=== PATIENT | female | born 1975 | race Caucasian/White ===

== ENCOUNTER → 2017-05-30 | Outpatient (CLI) | payer BC ==
[2017-05-30 17:22] LABS: Basophils # (A) 0.1 k/uL (0-0.2); Basophils % (A) 0 %; CH 29.6; CHCM 33.8; Eosinophils # (A) 0.1 k/uL (0-0.7); Eosinophils % (A) 1 %; HCT 42.1 % (34.0-46.0); HDW 2.38; HGB 13.5 gm/dL (11.4-16.0); Luc # (Auto) 0.17; Luc % (Auto) 2; Lymphocytes # (A) 2.4 k/uL (1.0-4.8); Lymphocytes % (A) 22 %; MCH 28.3 pg (25.0-35.0); MCHC 32.2 g/dL (31.0-37.0); Mean Platelet Volume 7.3; Monocytes # (A) 0.6 k/uL (0-1.0); Monocytes % (A) 6 %; Neutrophils # (A) 7.4 k/uL (1.3-7.7); Neutrophils % (A) 69 %; RBC 4.78 m/uL (3.80-5.40); RDW 14.2 % (11.5-15.5); WBC 10.7 k/uL (3.8-10.6); WBC (Perox) 10.91
== END | disposition home or self-care (01) ==
LOC: LABPAT 16:42
PROVIDERS: ATTEND Obstetrics & Gynecology
DX: Z01.812 Encounter for preprocedural laboratory examination (principal); N92.1 Excessive and frequent menstruation with irregular cycle
CPT/HCPCS: 85025

== ENCOUNTER 2017-06-11 07:14 | Day surgery (SDC) | payer BC, OTHER ==
[2017-06-06 17:25] VITALS: BMI 34.1
--- NOTE | 2017-06-10 17:07 | HP ---
HISTORY AND PHYSICAL DATE OF SURGERY: 06/11/2017 HISTORY OF PRESENT ILLNESS: Liz is a 41-year-old 4, para 3-0-1-3, who presented to the hospital with a longstanding history of heavy cycles lasting 7 to 9 days. More recently though, she reports increased irregularity, heaviness, with one that lasted as long as 30 days. She does have a tubal ligation in place and has been bleeding through protection on occasion as well. She was interested in a more permanent option for treatment. She did try an oral contraceptive pill after an ER visit last year, but this failed to control the bleeding, and she is not in need of contraception. She also reports some moderate dysmenorrhea without dyspareunia. PAST MEDICAL HISTORY: Past medical history is significant for hypertension and thyroid disease. PAST SURGICAL HISTORY: Past surgical history is significant for tubal ligation as well as upper and lower endoscopy in 2016. There were no apparent anesthetic concerns. OBSTETRICAL HISTORY: 4, para 3-0-1-3, with 3 term vaginal deliveries and 1 early elective interruption of . Method of contraception is tubal ligation. GYNECOLOGIC HISTORY: Unremarkable, with no history of any infections to include STDs. FAMILY HISTORY: Noncontributory. SOCIAL HISTORY: The patient is and a nonsmoker. She drinks occasional alcohol. No other social concerns. CURRENT MEDICATIONS: Current medications include: 1. Albuterol inhaler as needed. 2. B12 sublingual lozenges. 3. Multivitamin daily. ALLERGIES: 1. CHLORINE OF SOME KIND caused flu-like symptoms. 2. LATEX is a local allergy. REVIEW OF SYSTEMS: Confined to history of present illness. PHYSICAL EXAMINATION: Vital signs are stable. The patient is afebrile. In general, this is a well- developed, well-nourished white female in no acute distress. Her heart has a regular rhythm and rate without murmur. Her lungs are clear to auscultation bilaterally in all mason. Her abdomen is not distended, has normoactive bowel sounds, is soft, nontender, and without any palpable masses, hepatosplenomegaly or hernias. Her extremities are without any cyanosis, clubbing or edema and are non-tender to palpation bilaterally. Pelvic examination demonstrates normal external genitalia and BUS with normal vaginal mucosa and cervix. There is no cervical motion tenderness. Uterus is approximately 5-6 weeks in size, mid plane, mobile, non-tender and normal in shape. Endometrial biopsy was performed in one pass with adequate tissue returned and a subsequent benign finding on endometrial biopsy. ASSESSMENT AND PLAN: Menometrorrhagia. After we discussed multiple different treatment options and the patient declined hormonal intervention in favor of a surgical approach, we discussed diagnostic hysteroscopy with NovaSure endometrial ablation. Risks and complications of the procedure were discussed at length, including the risk for bleeding, bleeding requiring transfusion, infection, and injury to local structures, to specifically include uterine perforation, Asherman syndrome and subsequent hematometra. She has understood all these and has agreed to proceed. We are scheduled for the morning of June 11, 2017. MMODL / IJN: [id number] /
[~2017-06-11 07:14] MED LIST: DEXAMETHASONE SOD PHOSPHATE 10 MG/ML 1 ML VIAL IV ONE; LACTATED RINGERS 1,000 ML IV SCH; MIDAZOLAM 2 MG/2 ML VIAL IV PRN; ONDANSETRON 4 MG/2 ML VIAL IVP ONE; Pre Op ABX Message 1 EACH MISC MISCELLANE ONE; SCOPOLAMINE 1.5MG/72HR PATCH TRANSDERM ONE
[2017-06-11 08:11] VITALS: TEMP 97.8
[2017-06-11] MEDS ORDERED: LIDOCAINE 1% 20 ML VIAL (10MG/ML) FOR IV START IV ONE (08:12)
[2017-06-11] MEDS ORDERED: KETOROLAC 30 MG/ML 1 ML VIAL IVP PRN (08:24)
[2017-06-11] MEDS ORDERED: METOCLOPRAMIDE 5 MG/ML 2 ML VIAL IVP PRN (08:24)
[2017-06-11] MEDS ORDERED: ONDANSETRON 4 MG/2 ML VIAL IVP PRN (08:24)
[2017-06-11] MEDS ORDERED: diphenhydrAMINE 50 MG/ML 1 ML VIAL IVP PRN (08:24)
[2017-06-11] MEDS ORDERED: SIMETHICONE 80 MG CHEWABLE PO PRN (08:24)
[2017-06-11] MEDS ORDERED: IBUPROFEN 600 MG TAB PO PRN (08:24)
[2017-06-11] MEDS ORDERED: Acetaminophen-Codeine 300-30mg TAB PO PRN ×2 (08:24)
[2017-06-11] MEDS ORDERED: LACTATED RINGERS 1,000 ML IV SCH (08:30)
[2017-06-11] MEDS ORDERED: fentaNYL (PF) 50 MCG/ML 2 ML AMP ONE (08:35)
[2017-06-11] MEDS ORDERED: LIDOCAINE 1% INJ 10MG/ML (20 ML MDV) ONE (08:35)
[2017-06-11] MEDS ORDERED: KETOROLAC 30 MG/ML 1 ML VIAL ONE (08:35)
[2017-06-11] MEDS ORDERED: MIDAZOLAM 2 MG/2 ML VIAL ONE (08:35)
[2017-06-11] MEDS ORDERED: PROPOFOL 10 MG/ML 20 ML VIAL IV ONE (08:35)
--- NOTE | 2017-06-11 09:06 | P.OP ---
Date of Procedure: 06/11/17 Preoperative Diagnosis: #1. Menometrorrhagia Postoperative Diagnosis: Same Procedure(s) Performed: #1. Diagnostic hysteroscopy #2. NovaSure endometrial ablation Anesthesia: other (Gen. by facemask) Surgeon: Rajendra Perez Estimated Blood Loss (ml): 5 IV fluids (ml): 300 Urine output (ml): 250 Pathology: none sent Condition: stable Disposition: PACU Operative Findings: Preoperative pelvic examination demonstrated a roughly 6 week slightly anteverted mobile normal shaped uterus with normal adnexa bilaterally. Intraoperatively, the uterus sounded to 10 cm while the cervix was approximate 4 cm in length. Using the hysteroscope, the bilateral tubal ostia were seen and there was no apparent pathology throughout the entire uterus. The settings for the NovaSure tool where a length of 6.0 cm, a width of 4.5 cm and a total power of 149 W. This led to a total run time of 73 seconds after which time the base unit read "procedure complete." The postprocedural hysteroscopic the view of the uterus appeared to demonstrated an excellent result. The patient is a borderline candidate for vaginal hysterectomy should it become necessary in the future. Description of Procedure: The patient was prepped and draped in usual fashion after general anesthesia was administered by the anesthesiologist. A weighted speculum was placed and the bladder drained of approximately 250 mL of clear scarlett urine. The anterior lip of the cervix was grasped with single-tooth tenaculum and uterus sounded to 10 cm as noted above with a roughly 47 m cervical measurement. Serial dilation was carried out to admit the diagnostic hysteroscope with the findings as noted above. Once adequate hysteroscopy had been carried out, the scope was set aside and dilation carried out to admit the NovaSure tool which was placed into the in vitro cavity and seated well. The settings for the tool were as noted above, a length of 6.0 cm, a width of 4.5 cm and a total power 149 W. The cavity check was attempted and passed without difficulty and the tool was enabled. The run was started and, after a total 73 seconds, the tool disengaged at which time the base unit read "procedure complete." The 2 was closed, removed and discarded. The diagnostic scope was replaced within the in vitro cavity and the result appeared to be excellent. All instrumentation was removed. There was a small point of bleeding at one of the tenaculum sites made hemostatic with pressure. Estimated blood loss for the entire case was less than 5 mL. There were no complications. All sponge, instrument, and needle counts were correct. The patient tolerated the procedure well and proceeded to the recovery room in stable condition.
[2017-06-11 09:13] VITALS: RESP 16
[2017-06-11] MEDS: HYDROmorphone 0.5 MG/0.5 ML SYRINGE IVP PRN ×2 (09:27→09:33)
[2017-06-11] MEDS ORDERED: LACTATED RINGERS 1,000 ML IV ONE (09:46)
[2017-06-11 10:31] VITALS: BP 125/88; PULSE 72
== END 2017-06-11 11:10 | disposition home or self-care (01) ==
LOC: OR 07:14
PROVIDERS: ATTEND Obstetrics & Gynecology
DX: N92.1 Excessive and frequent menstruation with irregular cycle (principal); I10 Essential (primary) hypertension; E07.9 Disorder of thyroid, unspecified; Z91.040 Latex allergy status; Z91.09 Other allergy status, other than to drugs and biological substances; J45.909 Unspecified asthma, uncomplicated; Z87.442 Personal history of urinary calculi; Z79.83 Long term (current) use of bisphosphonates; Z79.899 Other long term (current) drug therapy
CPT/HCPCS: 81025; 58563; J2250; J1100; J2405; J2001; J3010; J1885; J2704; J1170

== ENCOUNTER 2017-10-22 06:43 | Emergency (ER) | payer BC ==
[2017-10-22 06:49] VITALS: BP 154/86; PULSE 77; RESP 18; TEMP 99.1
[2017-10-22] MEDS ORDERED: diphenhydrAMINE 50 MG/ML 1 ML VIAL IM STA (07:48)
[2017-10-22] MEDS ORDERED: methylPREDNISolone SOD SUCCI 125 MG/2 ML VIAL IM ONE (07:48)
--- NOTE | 2017-10-22 07:54 | ED ---
General Adult HPI - General Chief complaint: Eye Problems Stated complaint: eye swelling Time Seen by Provider: 10/22/17 07:38 Source: patient, family, RN notes reviewed Mode of arrival: ambulatory Limitations: no limitations - History of Present Illness Initial comments: Patient is a pleasant 42-year-old female presenting to the emergency department with upper eyelid swelling. Onset was around 4 AM. Symptoms have worsened since that time. Patient has mild discomfort, no pain. No change in vision. No lower eyelid or eye involvement. No swelling of the lips or tongue or throat. No dyspnea. Patient did have similar symptoms once previously. Patient also has had a chronic rash mostly on her hands. Patient did see a card decorator for her rash and told her it was likely eczema. Patient has been worked up for rheumatological disease. No fevers. Patient denies any eye makeup. - Related Data Home Medications Medication Instructions Recorded Confirmed Albuterol Inhaler [Ventolin Hfa 1 - 2 puff INHALATION RT-Q6H PRN 06/06/17 Inhaler] Erythromycin Ophth Oint [Romycin 1 applic BOTH EYES QID PRN 10/22/17 10/22/17 Ophth Oint] Levocetirizine Dihydrochloride 5 mg PO DAILY PRN 10/22/17 10/22/17 [Xyzal] Losartan-Hctz 50-12.5 mg [Hyzaar 1 tab PO DAILY 10/22/17 10/22/17 50-12.5] buPROPion HCL [Wellbutrin SR] 150 mg PO BID 10/22/17 10/22/17 Previous Rx's Medication Instructions Recorded methylPREDNISolone Dose Pack 24 mg PO DAILY #1 tab 10/22/17 [Medrol Dose Pack] Allergies Allergy/AdvReac Type Severity Reaction Status Date / Time Latex, Natural Rubber Allergy Rash/Hives Verified 10/22/17 07:31 chlorine Allergy rash, flu Uncoded 10/22/17 06:49 symptoms Review of Systems ROS Statement: Those systems with pertinent positive or pertinent negative responses have been documented in the HPI. ROS Other: All systems not noted in ROS Statement are negative. Constitutional: Denies: fever Eyes: Denies: eye pain, eye discharge, vision change ENT: Denies: ear pain Respiratory: Denies: cough Cardiovascular: Denies: chest pain Endocrine: Denies: fatigue Gastrointestinal: Denies: abdominal pain Genitourinary: Denies: dysuria Musculoskeletal: Denies: back pain Skin: Denies: rash Neurological: Denies: headache Past Medical History Past Medical History: Hypertension Additional Past Medical History / Comment(s): depression History of Any Multi-Drug Resistant Organisms: None Reported Additional Past Surgical History / Comment(s): endometrial ablasion Past Psychological History: Depression Smoking Status: Never smoker Past Alcohol Use History: None Reported Past Drug Use History: None Reported General Exam Limitations: no limitations General appearance: alert, in no apparent distress Head exam: Present: atraumatic Eye exam: Present: PERRL, EOMI, other (Moderate bilateral upper eyelid swelling with mild pinkish discoloration) ENT exam: Present: normal oropharynx Neck exam: Present: normal inspection Respiratory exam: Present: normal lung sounds bilaterally Cardiovascular Exam: Present: regular rate, normal rhythm GI/Abdominal exam: Present: soft. Absent: tenderness Extremities exam: Present: normal inspection Neurological exam: Present: alert Psychiatric exam: Present: normal affect, normal mood Skin exam: Present: normal color Course Vital Signs 10/22/17 06:45 Temperature 99.1 F Pulse Rate 77 Respiratory 18 Rate Blood Pressure 154/86 O2 Sat by Pulse 98 Oximetry Medical Decision Making - Medical Decision Making Patient is advised that there is a possibility of the losartan and Hyzaar causing the symptoms and to follow up with her doctor for this. Disposition Clinical Impression: Angioedema Disposition: HOME SELF-CARE Condition: Stable Instructions: Angioedema (ED) Additional Instructions: Do not use any eye makeup. Please follow-up with primary care physician in the next day or 2 for recheck. Hold Hyzaar until follow-up with primary care physician. There is a slight chance this medication could be related. Continue antihistamine. Return for difficulty in breathing, swelling of the throat or tongue or lips, visual change, fevers, worsening symptoms or other concerns. Prescriptions: methylPREDNISolone Dose Pack [Medrol Dose Pack] 24 mg PO DAILY #1 tab Referrals: Pasha Tsai MD [Primary Care Provider] - 1-2 days Time of Disposition: 07:54
== END 2017-10-22 08:09 | disposition home or self-care (01) ==
LOC: EC 06:43
DX: T78.3XXA Angioneurotic edema, initial encounter (principal); I10 Essential (primary) hypertension; F32.9 Major depressive disorder, single episode, unspecified; Z79.899 Other long term (current) drug therapy; Z91.040 Latex allergy status; Z91.048 Other nonmedicinal substance allergy status
CPT/HCPCS: 99283; 96372 ×2; J1200; J2930

== ENCOUNTER → 2017-12-02 | Outpatient (CLI) | payer BC ==
--- NOTE | 2017-12-02 09:10 | MM ---
Reason for exam: clinical finding. History: Took hormonal contraceptives for 5 years beginning at age 21. Physical Findings: Nurse Summary: 0.5cm nodule in the left breast at the nipple (nurse ambrose). MG 3D Diag Mammo W/Cad KALEB Bilateral CC and MLO view(s) were taken. There are scattered fibroglandular densities. There is a 5mm mass in the right upper outer quadrant at posterior depth. On left palpable abnormality appears to relate to a vascularity. Precautionary ultrasound will be performed. These results were verbally communicated with the patient and result sheet given to the patient on 12/02/17. ASSESSMENT: Incomplete: need additional imaging evaluation, BI-RAD 0 RECOMMENDATION: Ultrasound of both breasts. (right upper outer quadrant and left at palpable)
--- NOTE | 2017-12-02 09:14 | USB ---
Reason for exam: additional evaluation requested from abnormal screening. History: Took hormonal contraceptives for 5 years beginning at age 21. US Breast Limited BILAT Right breast ultrasound demonstrates a 0.4 x 0.2 x 0.2cm node at 10 o'clock, benign, corresponds to the mammographic finding. Left breast ultrasound is negative. No sonographic correlation to the patient's palpable abnormality. These results were verbally communicated with the patient and result sheet given to the patient on 12/02/17. ASSESSMENT: Benign, BI-RAD 2 RECOMMENDATION: Routine screening mammogram of both breasts in 1 year. Manage on a clinical basis, possibly vasculature.
== END | disposition home or self-care (01) ==
LOC: RADMAMWWP 07:06
PROVIDERS: ATTEND Obstetrics & Gynecology
DX: N63.0 Unspecified lump in unspecified breast (principal)
CPT/HCPCS: 77066; 76642; G0279

== ENCOUNTER → 2021-07-17 | Outpatient (CLI) | payer BC, OTHER ==
--- NOTE | 2021-07-17 09:35 | US ---
EXAMINATION TYPE: US abdomen complete DATE OF EXAM: 07/17/2021 COMPARISON: NONE CLINICAL HISTORY: R10.84 Generalized abdominal pain. lower abd pain with rectal bleeding EXAM MEASUREMENTS: Liver Length: 16.8 cm Gallbladder Wall: 0.3 cm CBD: 0.5 cm Spleen: 9.4 cm Right Kidney: 11.5 x 4.6 x 4.5 cm Left Kidney: 12.7 x 4.6 x 6.0 cm Pancreas: wnl Liver: difficult to penetrate Gallbladder: wnl Evidence for sonographic Leung's sign: no CBD: wnl Spleen: wnl Right Kidney: wnl Left Kidney: wnl Upper IVC: wnl Abd Aorta: wnl The liver shows no mass, echotexture is coarse. The intrahepatic portion of the IVC and proximal abd ominal aorta are within normal limits. There is no evidence of cholelithiasis. Common bile duct is unremarkable. The visualized portions of the pancreas are homogenous. The spleen is unremarkable. Kidneys are symmetric and free of hydronephrosis, cortical measured differentiation is maintained. N o renal lesions are seen. IMPRESSION: Correlate for possible hepatic steatosis, hepatocellular disease, liver may be enlarged, measurement may under represent true size due to technique
== END | disposition home or self-care (01) ==
LOC: RADUSWWP 07:18
PROVIDERS: ATTEND Internal Medicine
DX: K76.89 Other specified diseases of liver (principal)
CPT/HCPCS: 76700

== ENCOUNTER → 2022-08-22 | Outpatient (CLI) | payer BC, OTHER ==
--- NOTE | 2022-08-23 18:57 | MM ---
Reason for Exam: Screening (asymptomatic). Last mammogram was performed 4 year(s) and 9 month(s) ago. Patient History: Menarche at age 11. First Full-Term at age 23. Hormonal Contraceptives for 5 years from age 21 until age 26. Last menstrual period: 06/11/2017 Risk Values: Devorah 5 year model risk: 0.8%. NCI Lifetime model risk: 9.3%. Prior Study Comparison: 12/02/2017 Bilateral Diagnostic Mammogram, [facility]. Tissue Density: There are scattered fibroglandular densities. Findings: Analyzed By CAD. Unchanged small intramammary lymph node lateral right breast. There is no suspicious group of microcalcifications or new suspicious mass in either breast. Overall Assessment: Negative, BI-RAD 1 Management: Screening Mammogram of both breasts in 1 year. 1. Patient should continue monthly self breast exams. 2. A clinical breast exam by your physician is recommended on an annual basis. 3. This exam should not preclude additional follow-up of suspicious palpable abnormalities. Electronically signed and approved by: Claudia Beavers M.D. Radiologist
== END | disposition home or self-care (01) ==
LOC: RADMAMWWP 16:38
PROVIDERS: ATTEND Obstetrics & Gynecology
DX: Z12.31 Encounter for screening mammogram for malignant neoplasm of breast (principal)
CPT/HCPCS: 77063; 77067

== ENCOUNTER → 2024-12-30 | Outpatient (CLI) | payer BC ==
[2024-12-30 16:38] VITALS: BP 104/72; PULSE 63; RESP 16; TEMP 98.2
--- NOTE | 2024-12-30 17:19 | P.SLEEP ---
History of Present Illness DATE: 12/30/2024 CONSULTATION/NEW PATIENT EVALUATION HISTORY OF PRESENT ILLNESS/SLEEP-WAKE EVALUATION: 49-year-old lady had been e valuated in the sleep center for possible obstructive sleep apnea hypopnea syndrome. SLEEP SCHEDULE: Usually sleep schedule from 1011 PM to 5:30 AM on weekdays and 121 AM until 7 AM on weekend. FALLING ASLEEP: Sometimes patient has difficulties with falling asleep, has TV set in bedroom. DURING SLEEP: Patient sleeps in different positions with loud snoring, episodes of gasping for air, choking, grinding teeth, palpitation, heartburn. Positive history of restless leg symptoms patient wakes up from sleep several times with up to 3 episodes of using restroom. Positive history of night terrors. No history of hypnogogical hallucinations, sleep paralysis, or cataplexy. DURING THE DAY/WAKE STATE: In the morning patient wake up tired. Hecker sleepiness scale is 8. Occasionally patient may take nap around 2 PM. Positive history of vivid dreams during naps. PAST MEDICAL HISTORY: Hypertension, diabetes mellitus, asthma, hyperlipidemia, acid reflux, esophageal metaplasia. PAST SURGICAL HISTORY: Cholecystectomy, tubal ligation, endometrial ablation. MEDICATIONS: Please see below. SOCIAL HISTORY: Please see below. FAMILY HISTORY: Please see below. REVIEW OF SYSTEMS: Snoring, multiple awakenings from sleep. No fevers. No double vision. No recent chest pain. No shortness of breath. No abdominal pain. No bleeding episodes. No blood in urine. No seizure episodes. PHYSICAL EXAMINATION: GENERAL: A pleasant patient without any distress. VITAL SIGNS: Please see below, weight 218.0 pounds, BMI 36.8. HEENT: PERRLA, EOMI. Evaluation of oropharynx showed tongue protrudes midline, low position of soft palate Mallampati 4, retrognathia 2 mm. NECK: Supple. No JVD. Thyroid is not palpable. 17 inches in circumference. LUNGS: Clear to percussion and to auscultation. Good air exchange. No wheezing or rhonchi. HEART: S1, S2 regular. No murmurs, gallops or rubs. ABDOMEN: Soft and nontender. Bowel sounds are present. No organomegaly appreciated. EXTREMITIES: No clubbing or cyanosis. BARBER: Awake, alert, and oriented x3. Cranial nerves 2 to 7 intact. There is no fasciculation or atrophy noted. No focal deficits observed. ASSESSMENT: 1. Loud snoring, multiple awakenings from sleep with choking and gasping for air, position of soft palate Mallampati 4, retrognathia 2 mm, wide neck 17 inches in circumference. Obstructive sleep apnea hypopnea syndrome. 2. Obesity, BMI 36.8. 3. Hypertension. 4. Diabetes mellitus. 5 asthma. 6 . Hyperlipidemia. 7. Acid reflux. 8. Esophageal metaplasia. 9 . Status post endometrial ablation. 10. Status post cholecystectomy. 11. Status post tubal ligation. PLAN: 1. Polysomnography for evaluation of patient's breathing during sleep. 2. Following plan after reading sleep study. 3. Preferable position during sleep on the side. 4. No driving if patient feels any sleepiness. Patient is aware of civil and criminal liability for unsafe driving. 5. Sleep hygiene with regular sleep time for at least 7.5-8 hours. 6. Watching and losing weight. Thank you very much for referring this patient for consultation. Sincerely, Yaya Romo MD, PhD, FAASM. Diplomat of [place] [employer], Sleep Medicine Board by [place] [employer] [place] [employer] [facility] [place] cc: Aguilar Dominguez MD, Markus Erwin DO Past Medical History Past Medical History: Diabetes Mellitus, Hyperlipidemia, Hypertension Additional Past Medical History / Comment(s): depression, METAPLASIA OF THE ESOPHAGUS, SEVERE GERD,KIDNEY STONES, FATTY LIVER, EXTERNAL AND INTERNAL HEMRHOIDS AND POLYPS History of Any Multi-Drug Resistant Organisms: None Reported Past Surgical History: Cholecystectomy, Tubal Ligation Additional Past Surgical History / Comment(s): endometrial ablasion , endoscopy and colonoscopy (EGD) Past Psychological History: Anxiety, Depression Smoking Status: Never smoker Past Alcohol Use History: None Reported Past Drug Use History: None Reported - Past Family History Father Family Medical History: CVA/TIA Additional Family Medical History / Comment(s): positive for TB Mother Family Medical History: Hyperlipidemia, Hypertension Additional Family Medical History / Comment(s): cataracts, ulcers, fatty liver Medications and Allergies Home Medications Medication Instructions Recorded Confirmed Type Albuterol Inhaler [Ventolin Hfa 1 - 2 puff INHALATION RT-Q6H PRN 06/06/17 10/22/17 History Inhaler] Erythromycin Ophth Oint [Romycin 1 applic BOTH EYES QID PRN 10/22/17 10/22/17 History Ophth Oint] Levocetirizine Dihydrochloride 5 mg PO DAILY PRN 10/22/17 10/22/17 History [Xyzal] Losartan-Hctz 50-12.5 mg [Hyzaar 1 tab PO DAILY 10/22/17 10/22/17 History 50-12.5] buPROPion HCL [Wellbutrin SR] 150 mg PO BID 10/22/17 10/22/17 History methylPREDNISolone Dose Pack 24 mg PO DAILY #1 tab 10/22/17 Rx [Medrol Dose Pack] Allergies Allergy/AdvReac Type Severity Reaction Status Date / Time Latex, Natural Rubber Allergy Rash/Hives Verified 10/22/17 07:31 chlorine Allergy rash, flu Uncoded 10/22/17 06:49 symptoms Physical Exam Vitals: Vital Signs Temp Pulse Resp BP Pulse Ox 12/30/24 16:36 98.2 F 63 16 104/72 95 Intake and Output 12/30/24 12/30/24 12/30/24 06:59 14:59 22:59 Other: Weight 98.883 kg Sleep Note - Sleep Data ESS Total: 8 - Sleep Note Sleep Note: Temperature: 98.2 F Pulse Rate: 63 Respiratory Rate: 16 Blood Pressure: 104/72 SpO2: 95 Height: 5 ft 4.5 in Weight: 98.883 kg BMI: Neck Circumference: 17
== END ==
LOC: 3 N SLEEP 15:56
PROVIDERS: ATTEND Internal Medicine
DX: G47.33 Obstructive sleep apnea (adult) (pediatric) (principal); E66.9 Obesity, unspecified; I10 Essential (primary) hypertension; E11.9 Type 2 diabetes mellitus without complications; J45.909 Unspecified asthma, uncomplicated; E78.5 Hyperlipidemia, unspecified; K21.9 Gastro-esophageal reflux disease without esophagitis; K22.70 Barrett's esophagus without dysplasia; Z68.36 Body mass index [BMI] 36.0-36.9, adult; Z98.890 Other specified postprocedural states; Z90.49 Acquired absence of other specified parts of digestive tract; Z98.51 Tubal ligation status; Z91.040 Latex allergy status; Z88.8 Allergy status to other drugs, medicaments and biological substances
CPT/HCPCS: 99211

== ENCOUNTER → 2025-02-23 | Outpatient (CLI) | payer BC ==
--- NOTE | 2025-02-24 12:40 | P.PCN ---
Description of Procedure: CLINICAL: A home sleep apnea test has been done for confirmation of possible obstructive sleep apnea-hypopnea syndrome. DESCRIPTION OF PROCEDURE: RESULTS: Recording time was 7 hours 46 minutes. Evaluation time was 7 hours 34 minutes. Evaluation time is sufficient for making conclusion about results of the test. Raw data of sleep recording has been reviewed and is adequate. Respiratory channel showed 12 apneas and 68 hypopneas. Apnea-hypopnea index was 10.6 per hour. Pulse rate in the range between minimum 60, maximum 100, average 74 by computer calculation. Lowest desaturation was 81%. IMPRESSION: 1. Obstructive Sleep Apnea Hypopnea Syndrome. 2. Hypertension. Please see other impressions from consultation. PLAN: 1. The patient will be started on auto-PAP treatment for correction of respiratory abnormallities during sleep. 2. I will see patient for follow up visit to discuss results of the test, evaluate clinical response on treatment with PAP therapy and make any necessary adjustments related to mask fitting, pressure, and humidification. 3. Watching and losing weight. 4. Sleep hygiene with regular time in bed for at least 8 hours. 5. No driving if feeling any sleepiness. Thank you very much for allowing me to participate in the management of your patient. Sincerely, Yaya Romo MD, PhD, FAASM Diplomat of [employer] [place] [employer] Specialties Sleep Medicine Board of [place] Board of Internal Medicine [employer] [place] cc: Aguilar Dominguez MD, Markus Erwin DO
== END ==
LOC: 3 N SLEEP 16:38
PROVIDERS: ATTEND Internal Medicine
DX: G47.33 Obstructive sleep apnea (adult) (pediatric) (principal); I10 Essential (primary) hypertension; Z91.040 Latex allergy status; Z91.048 Other nonmedicinal substance allergy status